=== PATIENT | male | born 1945 | race Caucasian/White ===

== ENCOUNTER 2018-03-16 11:45 | Emergency (ER) | payer BC, SELFPAY ==
[2018-03-16 11:55] VITALS: BP 139/89; PULSE 70; RESP 14; TEMP 36.2; O2SAT 100
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
[2018-03-16] MEDS: TET,DIPH,PERTUSS(ACELL),VAC/PF 0.5 ML SYRINGE IM (12:55)
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
[2018-03-16 13:14] VITALS: PULSE 58; O2SAT 98
[2018-03-16 14:17] VITALS: BP 129/85; PULSE 83; RESP 14; O2SAT 98
--- NOTE | 2018-04-26 17:43 | PC.NURSE ---
pt finished fluids 03/16/18 unknown time, prior to discharge.
== END 2018-03-16 15:17 | disposition home or self-care (01) ==
PROVIDERS: Emergency Provider Emergency Medicine
DX: S01.81XA Laceration without foreign body of other part of head, initial encounter (principal); S09.90XA Unspecified injury of head, initial encounter; V18.2XXA Unspecified pedal cyclist injured in noncollision transport accident in nontraffic accident, initial encounter
CPT/HCPCS: 12013; 70450; 70486; 72125; 73562; 90471; 99283; 99284; 90715